=== PATIENT | male | born 1990 | race Caucasian/White ===

== ENCOUNTER 2016-12-16 06:57 | Day surgery (SDC) | payer OTHER ==
[2016-12-16] VITALS (17 sets, daily range): BP systolic 109–129; BP diastolic 59–78; PULSE 56–89; RESP 16–22; Ht 177.8 cm; Wt 75.0 kg
[~2016-12-16] VITALS: Ht 177.8 cm; Wt 75.0 kg
[~2016-12-16 06:57] MED LIST: CEFAZOLIN 1 GM/50 ML (PMX) 50 ML IVPB SCH
[2016-12-16 07:46] LABS: BASOPHIL # 0.1 10^3/ul (0.0-0.1); BASOPHILS % 0.8 % (0.0-2.0); EOSINOPHILS # 0.6 10^3/ul (0.0-0.5); HEMATOCRIT 44.8 % (42.0-52.0); HEMOGLOBIN 15.8 g/dl (14.0-18.0); LYMPHOCYTES # 2.8 10^3/ul (0.8-2.9); LYMPHOCYTES % 31.8 % (15.0-51.0); MEAN CORPUSCULAR HEMOGLOBIN 30.4 pg (29.0-33.0); MEAN CORPUSCULAR HGB CONC 35.3 g/dl (32.0-37.0); MEAN CORPUSCULAR VOLUME 86.2 fl (82.0-101.0); MEAN PLATELET VOLUME 10.9 fl (7.4-10.4); MONOCYTE # 0.6 10^3/ul (0.3-0.9); MONOCYTES % 6.6 % (0.0-11.0); NEUTROPHIL # 4.6 10^3/ul (1.6-7.5); NEUTROPHILS % 53.6 % (39.0-77.0); PLATELET COUNT 303 10^3/UL (140-415); RED CELL DISTRIBUTION WIDTH 11.9 % (11.5-14.5); WHITE BLOOD COUNT 8.7 10^3/ul (4.8-10.8)
[2016-12-16 08:04] LABS: INR 1.14; PROTIME 14.6 Sec (12.2-14.2); PT RATIO 1.1
--- NOTE | 2016-12-16 08:07 | RADRPT ---
PROCEDURE: XR Chest. CLINICAL INDICATION: Preop TECHNIQUE: AP Portable chest. COMPARISON: No pertinent prior examinations were submitted for comparison. FINDINGS: The cardiomediastinal silhouette is normal. The aorta is normal. The lungs are hyperinflated. No foc al consolidation, pleural effusion or pneumothorax is seen. The osseous structures are intact. IMPRESSION: No radiographic evidence of acute cardiopulmonary disease. Hyperinflation. RPTAT: HCNS Physician Jordan Date Time Electronically viewed and signed by Physician Jordan on 12/16/2016 08:07 CS/
[2016-12-16 08:09] LABS: ALBUMIN 4.4 g/dl (3.3-4.9); ALBUMIN/GLOBULIN RATIO 1.46; BILIRUBIN,INDIRECT 0.4 mg/dl (0-1.1); BILIRUBIN,TOTAL 0.4 mg/dl (0.2-1.3); PARTIAL THROMBOPLASTIN TIME 37.7 Sec (25.0-35.0); TOTAL PROTEIN 7.4 g/dl (6.1-8.1)
[2016-12-16 08:13] LABS: CALCIUM 9.4 mg/dl (8.4-10.2); CREATININE 0.94 mg/dl (0.61-1.24); POTASSIUM 3.7 mmol/L (3.5-5.1)
[2016-12-16] MEDS ORDERED: METOPROLOL 5 MG INJ ONE (10:37)
[2016-12-16] MEDS ORDERED: PROPOFOL 20 ML ONE (10:37)
[2016-12-16] MEDS ORDERED: NEOSTIGMINE 3 MG/3 ML SYRINGE ONE (10:37)
[2016-12-16] MEDS ORDERED: ROCURONIUM 50 MG INJ ONE ×2 (10:37→11:25)
[2016-12-16] MEDS ORDERED: GLYCOPYRROLATE 1 MG INJ ONE (10:37)
[2016-12-16] MEDS ORDERED: ROPIVACAINE 0.5 % 30 ML VIAL ONE (10:38)
[2016-12-16] MEDS ORDERED: DEXAMETHASONE 4 MG/ML 1 ML INJ ONE (10:38)
[2016-12-16] MEDS ORDERED: MIDAZOLAM 1 MG/ML 2 ML INJ ONE (10:38)
[2016-12-16] MEDS ORDERED: METOCLOPRAMIDE 10 MG INJ ONE (10:38)
[2016-12-16] MEDS ORDERED: FENTAnyl 50 MCG/ML VIAL ONE (10:43)
[2016-12-16] MEDS ORDERED: BUPIVACAINE 0.25% (MPF) 30 ML INJ ONE (11:07)
--- NOTE | 2016-12-16 11:17 | PDOCDIS ---
Discharge Instructions DIAGNOSIS Discharge Diagnosis Left varicocele Phimosis CONDITION Patient Condition: Good HOME CARE INSTRUCTIONS: Diet Instructions: Regular ACTIVITY: Activity Restrictions: Slowly Increase Activity (No sex for two weeks) Bathing Restrictions: Shower FOLLOW UP/APPOINTMENTS Follow-up Plan 1 - [address] livingston[address] office SCHOOL/WORK RELEASE May return to School/Work on: Dec 26, 2016 SHAAN LIVINGSTON Dec 16, 2016 11:17
--- NOTE | 2016-12-16 11:26 | HP ---
DATE OF ADMISSION: 12/16/2016 CHIEF COMPLAINT: Left testicular pain and pain in the penis around foreskin. HISTORY OF PRESENT ILLNESS: This is a 26-year-old male who complains of swelling and discomfort of the left testes. This is more pronounced for the patient when he stands up than when he lays down. His scrotal ultrasound is consistent with a left varicocele. His examination is also consistent with left varicocele. The patient also has a history of phimosis. Patient developed a rip in the foreskin with sexual activity. He complains that when he gets an erection he gets tears within the in the foreskin. Furthermore, he has developed a scar tissue or skin tag along the frenulum due to the previous tears. The head of the penis bends downward slightly with erections as it gets tethered against his frenulum. PAST SURGERY HISTORY: None. PAST SURGICAL HISTORY: Foot surgery right side. FAMILY HISTORY: Uncle with brain cancer, grandmother with diabetes. SOCIAL HISTORY: Occasional alcohol. The patient does not smoke. ALLERGIES: NO KNOWN DRUG ALLERGIES. MEDICATIONS: None. REVIEW OF SYSTEMS: CONSTITUTIONAL: No fevers, no chills. No change in appetite, weight gain or weight loss. HEENT: No loss of hearing. No ear or sinus pain, no rhinorrhea, nosebleed or sore throat. CARDIOVASCULAR: No chest pain. No shortness of breath or heart palpitations. LUNGS: No cough, no phlegm production, wheezing or hemoptysis. GASTROINTESTINAL: Abdominal pain. No cramping. No nausea. MUSCULOSKELETAL: No bone pain. No change in strength or joint pain. INTEGUMENTARY: No skin rash or lesions. NEUROLOGIC: No dizziness, no headaches, no numbness. PSYCHIATRIC: No suicidal ideation. No depression. HEMATOLOGIC/LYMPHATIC: No known bleeding problems. No easy bruising. No lymph node enlargement. PHYSICAL EXAMINATION: GENERAL: Appears to be in no acute distress. GASTROINTESTINAL: Abdomen is soft, normal bowel sounds. Nondistended. Nontender. Hernia exam, none noted. Liver and spleen normal. GENITOURINARY: Scrotum, no lesions. No edema, no erythema, mass, rash or cyst. The left scrotum contains a bag of worms consistent with left varicoceles. On the right side no bag of worms is identified with patient standing or straining. Testes descended bilaterally, nontender. Epididymides symmetric nontender, nonindurated. Urethral meatus normal in size and location. Penis, no deformity, tight foreskin identified within scarring and skin tag deformity along the frenulum. The frenulum also appears to be scarred and tied against the ventral aspect of the phallus. NECK: Normal appearing, symmetric, normal tracheal position. Thyroid, no enlargement. LUNGS: Lungs clear to auscultation. HEART: Regular rhythm. EXTREMITIES: No edema. ASSESSMENT: 1. Left varicocele. 2. Phimosis. 3. Left testicular pain. 4. Painful penis with erections. RECOMMENDATIONS: I have spoken with patient in detail about the natural history, biology of varicoceles and we also discussed his phimosis. We discussed various treatment options. Among these options patient understands his choices include but not limited to continued active surveillance, open inguinal varicocelectomy, transscrotal microscopic varicocelectomy, laparoscopic spermatic vein ligation. In terms of his phimosis he understands his choices include no treatment, use of steroid creams, dorsal slit, circumcision with frenuloplasty. Pros and cons of these various treatment options have been discussed with the patient. The patient is requesting to undergo a laparoscopic left spermatic vein ligation as well as circumcision. This procedure has been explained to the patient in detail. Risks and benefits have been discussed. He understands risks include, but not limited to, infection, bleeding, damage to adjacent structures, heart problems, lung problems, possibility of need for further surgery, DVT, PE, IA, CVA, nonresolution of symptoms, recurrent symptoms, worsening of symptoms, need for further treatment, need further surgeries, bowel injury, ureteral injury, vascular injury or injury to the testes, loss of testes, testicular atrophy, decreased sperm counts, continued testicular pain, penile deformity, penile adhesions, decreased sensitivity to the penis. All the patient's questions have been answered. No guarantees given. The patient would like to proceed with laparoscopic left spermatic vein ligation and circumcision. The patient also inquired about undergoing a right spermatic vein ligation; however, on examination, he does not have a varicocele. We have not been able to establish the existence of varicocele on that side. He explains to me that he feels some swelling around the right testes; however I explained to him that what he is feeling is a normal spermatic cord and not a dilated blood vessel like the left side. Therefore, left spermatic vein ligation was not performed. All the patient's questions have been answered. No guarantees were given. The patient would like to proceed. Dictated By: Charles Garcia MD /[email or web address] /Document#: [id number]
[2016-12-16] MEDS ORDERED: HYDROmorphONE 2 MG/ML SYG ONE (11:36)
[2016-12-16] MEDS ORDERED: KETOROLAC 30 MG INJ ONE (12:31)
--- NOTE | 2016-12-16 12:39 | SIPON ---
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
--- NOTE | 2016-12-16 16:37 | RADRPT ---
Vent Rate: 83 bpm RR Interval: 0 msec OR Interval: 166 msec QRS Duration: 86 msec QT Interval: 372 msec QTC Interval: 437 msec P-R-T [place]: 72 - 83 - 59 degrees Normal sinus rhythm Possible Left atrial enlargement Borderline ECG Electronically Signed By: Emir Bowles [id number]
--- NOTE | 2016-12-16 17:14 | DS ---
DATE OF ADMISSION: 12/16/2016 DATE OF DISCHARGE: 12/16/2016 ADMITTING DIAGNOSIS: Left varicocele and phimosis. DISCHARGE DIAGNOSIS: Left varicocele and phimosis. HOSPITAL COURSE: The patient was brought to the hospital, underwent a laparoscopic left spermatic vein ligation and circumcision. He tolerated procedure well. He was then transferred to recovery room. Once patient was stable, tolerating his diet, remaining afebrile and pain was well controlled he was discharged home. DISCHARGE INSTRUCTIONS: Activity as tolerated. No heavy lifting. Patient may shower. Follow up in 1-2 weeks. No sexual activity for at least 2 weeks. The patient was also instructed to remove his dressing off his penis within 24 hours. DISCHARGE MEDICATIONS: [place] 5/325 mg. Dictated By: Charles Garcia MD /[email or web address] /Document#: [id number]
--- NOTE | 2016-12-16 22:08 | OPR ---
DATE OF OPERATION: 12/16/2016 PREOPERATIVE DIAGNOSIS: 1. Left varicocele. 2. Phimosis. POSTOPERATIVE DIAGNOSIS: 1. Left varicocele. 2. Phimosis. PROCEDURE PERFORMED: 1. Laparoscopic left spermatic vein ligation. 2. Circumcision. INDICATION FOR PROCEDURE: Patient has history of left varicocele which is symptomatic. He also has phimosis and has had difficulty with his erections. Procedure has been explained to the patient in detail. Risks and benefits have been discussed. All of his questions have been answered. No guarantees given. He would like to proceed. FINDINGS: The left spermatic vein was moderately dilated. There was an additional spermatic vein which was also found, both were clipped and removed. Phimotic foreskin was encountered. There was increased scarring in the subcutaneous layer beyond the foreskin. The frenulum was tethering the head of the penis, therefore a transverse frenulotomy was also performed. PROCEDURE IN DETAIL: Patient was brought to the operating room, underwent general with endotracheal tube anesthesia. He was placed in a supine position. Abdomen, perineum and genitalia were prepped and draped in usual sterile fashion. Abdomen was insufflated supraumbilically. Laparoscopic port was placed. Laparoscopy was performed. No bowel injuries were seen. The rest of the laparoscopic ports were then placed in the right lower quadrant and right mid quadrant. At this point, the table was turned towards the right side with the left side slightly up. The colon was adhered against the pelvic sidewall. This obstructed the view to the spermatic vein. Therefore, the colon was mobilized medially, adhesional bands were taken down in order to mobilize the colon away. This was done from deep pelvis towards the pelvic brim. As this was done, the spermatic vein was identified. It appeared to be moderately enlarged. There is an additional spermatic vein which also appeared to be somewhat dilated. The peritoneum over the vein was then opened. The vein was then dissected from the surrounding structures. This was done about 10 cm proximal to the internal inguinal ring. As the vein was dissected, the position of the artery was identified. The artery was carefully swept off the vein, about a 3 cm length and the vein was obtained in this fashion. Two surgical clips were placed distally and two proximally. Next, the vein was divided. The vein was then removed, sent to pathology as left spermatic vein #1. A secondary vein was also identified. This was also dissected from surrounding structures. Again, care was taken not to injure the artery. Position of the artery was re- identified. This was also clipped with surgical clips, divided and sent to pathology as left spermatic vein #2. The rest of the spermatic cord was carefully examined. It appeared to be intact without evidence of bleeding. Intraperitoneal pressure was decreased from 15 to 7 mmHg. No evidence of bleeding was identified. Bowel was then placed back in its normal anatomic position. Bowel was reexamined. No evidence of injury to the bowel was identified. At this point, the laparoscopic ports were removed under direct vision. Fascia to these 5 mm port sites were closed with 2-0 Vicryl [id number] sutures. The skin was then closed with 4-0 Monocryl subcuticular stitch. Attention was then paid to the circumcision. A circumferential incision was made around the proximal foreskin. Foreskin was then retracted. Another circumferential incision was made around the distal foreskin about 1 cm proximal to the subcoronal sulcus. The foreskin was then excised. Of note, the skin was adherent to the subcutaneous tissues. Care was taken not to injure the subcutaneous vessels and dissection was not carried deep enough to skinny the tunica albuginea. Foreskin was removed. Next, hemostasis was obtained. The wound was irrigated with Betadine. Furthermore, there was a skin tag which appeared to be scar along the ventral aspect of the head of the penis near the frenulum. This was removed using the cautery. The frenulum itself also was tethering the head of the penis. Patient had complained of downward appearance to his penis because the frenulum would tether and pull the head of the penis down. He had asked that this also be repaired. Therefore, a transverse frenulotomy was made. Hemostasis was obtained. A U-stitch was placed ventrally between the proximal and distal skin edges bringing the two edges together with a 3-0 plain suture. Another suture was then placed dorsally between the proximal and distal edges. Next, each hemisphere was closed with 3-0 plain running suture. The transverse frenulotomy was then closed longitudinally using interrupted 3-0 plain suture. Excellent hemostasis had been obtained. A dry dressing was also applied to the penis. At this point, Dermabond was applied to the laparoscopic port sites. Patient was then awakened, extubated and taken to recovery room in stable condition. POSTPROCEDURE CONDITION: Stable. COMPLICATIONS: None. ESTIMATED BLOOD LOSS: Minimal. BLOOD ADMINISTERED: None. SPECIMENS SENT TO LAB: Left spermatic veins # 1 and 2, as well as foreskin. Dictated By: Charles Garcia MD /[email or web address] /Document#: [id number]
== END 2016-12-16 15:10 | disposition home or self-care (01) ==
LOC: SDS 06:57
PROVIDERS: ATTEND Surgery Surgical Oncology
DX: I86.1 Scrotal varices (principal); N47.1 Phimosis
CPT/HCPCS: 54161; 55550; 71010; 80053; 85025; 85610; 85730; 88304; 93005; J1100; J1885; J2250; J2710; J2765; J2795; J3010; Z7512; Z7610; J1170